=== PATIENT | male | born 1990 | race American Indian/Alaskan Native ===

== ENCOUNTER 2020-12-03 15:17 | Inpatient (IN) | payer OTHER ==
[2020-12-03 17:24] LABS: Basophils % (Auto) 0.3 % (0.0-1.8); Eosinophils % (Auto) 0.3 % (0.0-4.3); Hematocrit 46.7 % (35.5-45.6); Hemoglobin 15.1 gm/dl (11.8-15.2); Lymphocytes # (Auto) 1.7 K/mm3 (1.2-5.4); Lymphocytes % (Auto) 19.3 % (13.4-35.0); Mean Corpuscular HGB Conc 32 % (32-34); Mean Corpuscular Volume 92 fl (84-94); Monocytes # (Auto) 0.6 K/mm3 (0.0-0.8); Monocytes % (Auto) 6.6 % (0.0-7.3); Platelet Count 176 K/mm3 (140-440); Red Blood Count 5.06 M/mm3 (3.65-5.03); Red Cell Distribution Width 14.6 % (13.2-15.2)
[2020-12-03 17:26] LABS: Bilirubin,Urine NEG (Negative); Blood,Urine NEG (Negative); Color,Urine Colorless (Yellow); Mucus,Urine FEW /HPF; Protein,Urine <15 mg/dL mg/dL (Negative); Urobilinogen,Urine < 2.0 mg/dL (<2.0); WBC,Urine < 1.0 /HPF (0.0-6.0)
[2020-12-03 17:39] LABS: Alanine Aminotransferase 43 units/L (7-56); Albumin 4.2 g/dL (3.9-5); BUN/Creatinine Ratio 10; Blood Urea Nitrogen 8 mg/dL (9-20); Calcium 10.1 mg/dL (8.4-10.2); Hemolysis Index 6
--- NOTE | 2020-12-03 18:16 | Event Note ---
ED Screening Note Date of service: 12/03/20 Time: 18:14 ED Screening Note: Patient complains of body aches, weakness, nausea, urinary frequency x4 days No past medical history per patient Glucose noted to be 882 patient denies history of diabetes Heart rate noted to be 124 with a temp of 99.6 Charge nurse notified of likely DKA 1815 This initial assessment/diagnostic orders/clinical plan/treatment(s) is/are subject to change based on patients health status, clinical progression and re-assessment by fellow clinical providers in the ED. Further treatment and workup at subsequent clinical providers discretion. Patient/guardian urged not to elope from the ED as their condition may be serious if not clinically assessed and managed. Initial orders include: Labs
[2020-12-03] MEDS ORDERED: SODIUM CHLORIDE 0.9% 1000 ML 1,000 ML IV ONE ×2 (21:00→22:07)
--- NOTE | 2020-12-03 21:04 | Emergency Department Report ---
HPI - General Chief Complaint: Abdominal Pain Time Seen by Provider: 12/03/20 20:45 - HPI HPI: This is a 30-year-old -[place] male who presents to the emergency department with a complaint of a 4-day history of lightheadedness, intermittent abdominal pain, nausea without vomiting, body aches, and a 1 day history of some right-sided chest discomfort. Patient says that he has had a decreased appetite and that the abdominal pains increased when he eats or drinks anything. He denies any fever, diarrhea, constipation, dysuria, lower extremity swelling. No recent travel or sick contacts at home. Patient denies any past medical history. He had some blood work ordered and drawn through triage that came back showing a blood sugar of 882. No previous history of diabetes. After discussing this with him he does admit to some polyuria and polydipsia. ED Past Medical Hx - Past Medical History Previous Medical History?: No - Surgical History Past Surgical History?: No - Social History Smoking Status: Never Smoker Substance Use Type: Alcohol ED Review of Systems ROS: Stated complaint: CHEST PAIN, NOT EATING, ABD PAIN, BODY PAIN Other details as noted in HPI Comment: All other systems reviewed and negative Constitutional: weakness. denies: fever Eyes: denies: eye pain, vision change Respiratory: denies: cough, shortness of breath Cardiovascular: chest pain. denies: palpitations Endocrine: increased thirst, increased urine Gastrointestinal: abdominal pain, nausea. denies: vomiting, diarrhea, constipation Genitourinary: frequency. denies: dysuria Musculoskeletal: myalgia. denies: joint swelling Skin: denies: rash, lesions Neurological: denies: headache, numbness, paresthesias Physical Exam - Physical Exam Vital Signs: Vital Signs 12/03/20 16:01 Temperature 99.6 F Pulse Rate 124 H Respiratory 22 Rate Blood Pressure 158/94 O2 Sat by Pulse 96 Oximetry Physical Exam: GENERAL: The patient is well-developed well-nourished. HENT: Normocephalic. Atraumatic. Patient has moist mucous membranes. EYES: Extraocular motions are intact. NECK: Supple. Trachea is midline. CHEST/LUNGS: Clear to auscultation. There is no respiratory distress noted. HEART/CARDIOVASCULAR: Regular. There is mild to moderate tachycardia. There is no murmur. ABDOMEN: Abdomen is soft. Mild generalized abdominal tenderness to palpation. No guarding. Patient has normal bowel sounds. Obese habitus. SKIN: Skin is warm and dry. NEURO: The patient is awake, alert, and oriented. The patient is cooperative. The patient has no focal neurologic deficits. Normal speech. MUSCULOSKELETAL: There is no tenderness or deformity. There is no limitation range of motion. ED Course Vital Signs 12/03/20 16:01 Temperature 99.6 F Pulse Rate 124 H Respiratory 22 Rate Blood Pressure 158/94 O2 Sat by Pulse 96 Oximetry - Consultations Consultation #1: 12/03/20 22:09 I spoke to the commercial collections specialist on-call, Dr. Navas, who will consult on the patient. ED Medical Decision Making - Lab Data Result diagrams: 12/03/20 16:34 12/03/20 21:29 Lab Results 12/03/20 12/03/20 12/03/20 Range/Units 16:34 16:34 16:34 WBC 8.6 (4.5-11.0) K/mm3 RBC 5.06 H (3.65-5.03) M/mm3 Hgb 15.1 (11.8-15.2) gm/dl Hct 46.7 H (35.5-45.6) % MCV 92 (84-94) fl MCH 30 (28-32) pg MCHC 32 (32-34) % RDW 14.6 (13.2-15.2) % Plt Count 176 (140-440) K/mm3 Lymph % (Auto) 19.3 (13.4-35.0) % [place] % (Auto) 6.6 (0.0-7.3) % Eos % (Auto) 0.3 (0.0-4.3) % Baso % (Auto) 0.3 (0.0-1.8) % Lymph # (Auto) 1.7 (1.2-5.4) K/mm3 [place] # (Auto) 0.6 (0.0-0.8) K/mm3 Eos # (Auto) 0.0 (0.0-0.4) K/mm3 Baso # (Auto) 0.0 (0.0-0.1) K/mm3 Seg Neutrophils % 73.5 H (40.0-70.0) % Seg Neutrophils # 6.3 (1.8-7.7) K/mm3 VBG pH (7.320-7.420) Sodium 129 L (137-145) mmol/L Potassium 5.0 (3.6-5.0) mmol/L Chloride 93.2 L (98-107) mmol/L Carbon Dioxide 21 L (22-30) mmol/L Anion Gap 20 mmol/L BUN 8 L (9-20) mg/dL Creatinine 0.8 (0.8-1.3) mg/dL Estimated GFR > 60 ml/min BUN/Creatinine Ratio 10 % Glucose 882 H* (75-100) mg/dL POC Glucose (70-105) mg/dL Calcium 10.1 (8.4-10.2) mg/dL Phosphorus (2.5-4.5) mg/dL Magnesium (1.7-2.3) mg/dL Total Bilirubin 0.70 (0.1-1.2) mg/dL AST 19 (5-40) units/L ALT 43 (7-56) units/L Alkaline Phosphatase 138 H (35-129) units/L Troponin T < 0.010 (0.00-0.029) ng/mL Total Protein 7.4 (6.3-8.2) g/dL Albumin 4.2 (3.9-5) g/dL Albumin/Globulin Ratio 1.3 % Lipase 24 (13-60) units/L Urine Color (Yellow) Urine Turbidity (Clear) Urine pH (5.0-7.0) Ur Specific [place] (1.003-1.030) Urine Protein (Negative) mg/dL Urine Glucose (UA) (Negative) mg/dL Urine Ketones (Negative) mg/dL Urine Blood (Negative) Urine Nitrite (Negative) Urine Bilirubin (Negative) Urine Urobilinogen (<2.0) mg/dL Ur Leukocyte Esterase (Negative) Urine WBC (Auto) (0.0-6.0) /HPF Urine RBC (Auto) (0.0-6.0) /HPF U Epithel Cells (Auto) (0-13.0) /HPF Urine Mucus /HPF 12/03/20 12/03/20 12/03/20 Range/Units 18:13 20:51 21:29 WBC (4.5-11.0) K/mm3 RBC (3.65-5.03) M/mm3 Hgb (11.8-15.2) gm/dl Hct (35.5-45.6) % MCV (84-94) fl MCH (28-32) pg MCHC (32-34) % RDW (13.2-15.2) % Plt Count (140-440) K/mm3 Lymph % (Auto) (13.4-35.0) % [place] % (Auto) (0.0-7.3) % Eos % (Auto) (0.0-4.3) % Baso % (Auto) (0.0-1.8) % Lymph # (Auto) (1.2-5.4) K/mm3 [place] # (Auto) (0.0-0.8) K/mm3 Eos # (Auto) (0.0-0.4) K/mm3 Baso # (Auto) (0.0-0.1) K/mm3 Seg Neutrophils % (40.0-70.0) % Seg Neutrophils # (1.8-7.7) K/mm3 VBG pH 7.322 (7.320-7.420) Sodium (137-145) mmol/L Potassium (3.6-5.0) mmol/L Chloride (98-107) mmol/L Carbon Dioxide (22-30) mmol/L Anion Gap mmol/L BUN (9-20) mg/dL Creatinine (0.8-1.3) mg/dL Estimated GFR ml/min BUN/Creatinine Ratio % Glucose (75-100) mg/dL POC Glucose > 600 H (70-105) mg/dL Calcium (8.4-10.2) mg/dL Phosphorus (2.5-4.5) mg/dL Magnesium (1.7-2.3) mg/dL Total Bilirubin (0.1-1.2) mg/dL AST (5-40) units/L ALT (7-56) units/L Alkaline Phosphatase (35-129) units/L Troponin T < 0.010 (0.00-0.029) ng/mL Total Protein (6.3-8.2) g/dL Albumin (3.9-5) g/dL Albumin/Globulin Ratio % Lipase (13-60) units/L Urine Color (Yellow) Urine Turbidity (Clear) Urine pH (5.0-7.0) Ur Specific [place] (1.003-1.030) Urine Protein (Negative) mg/dL Urine Glucose (UA) (Negative) mg/dL Urine Ketones (Negative) mg/dL Urine Blood (Negative) Urine Nitrite (Negative) Urine Bilirubin (Negative) Urine Urobilinogen (<2.0) mg/dL Ur Leukocyte Esterase (Negative) Urine WBC (Auto) (0.0-6.0) /HPF Urine RBC (Auto) (0.0-6.0) /HPF U Epithel Cells (Auto) (0-13.0) /HPF Urine Mucus /HPF 12/03/20 12/03/20 12/03/20 Range/Units 21:29 21:29 Unknown WBC (4.5-11.0) K/mm3 RBC (3.65-5.03) M/mm3 Hgb (11.8-15.2) gm/dl Hct (35.5-45.6) % MCV (84-94) fl MCH (28-32) pg MCHC (32-34) % RDW (13.2-15.2) % Plt Count (140-440) K/mm3 Lymph % (Auto) (13.4-35.0) % [place] % (Auto) (0.0-7.3) % Eos % (Auto) (0.0-4.3) % Baso % (Auto) (0.0-1.8) % Lymph # (Auto) (1.2-5.4) K/mm3 [place] # (Auto) (0.0-0.8) K/mm3 Eos # (Auto) (0.0-0.4) K/mm3 Baso # (Auto) (0.0-0.1) K/mm3 Seg Neutrophils % (40.0-70.0) % Seg Neutrophils # (1.8-7.7) K/mm3 VBG pH (7.320-7.420) Sodium 133 L (137-145) mmol/L Potassium 5.5 H (3.6-5.0) mmol/L Chloride 93.1 L (98-107) mmol/L Carbon Dioxide 23 (22-30) mmol/L Anion Gap 22 mmol/L BUN 7 L (9-20) mg/dL Creatinine 0.8 (0.8-1.3) mg/dL Estimated GFR > 60 ml/min BUN/Creatinine Ratio 9 % Glucose 703 H* (75-100) mg/dL POC Glucose (70-105) mg/dL Calcium 9.7 (8.4-10.2) mg/dL Phosphorus 5.30 H (2.5-4.5) mg/dL Magnesium 2.50 H (1.7-2.3) mg/dL Total Bilirubin (0.1-1.2) mg/dL AST (5-40) units/L ALT (7-56) units/L Alkaline Phosphatase (35-129) units/L Troponin T (0.00-0.029) ng/mL Total Protein (6.3-8.2) g/dL Albumin (3.9-5) g/dL Albumin/Globulin Ratio % Lipase (13-60) units/L Urine Color Colorless (Yellow) Urine Turbidity Clear (Clear) Urine pH 7.0 (5.0-7.0) Ur Specific [place] 1.029 (1.003-1.030) Urine Protein <15 mg/dl (Negative) mg/dL Urine Glucose (UA) >=500 (Negative) mg/dL Urine Ketones Tr (Negative) mg/dL Urine Blood Neg (Negative) Urine Nitrite Neg (Negative) Urine Bilirubin Neg (Negative) Urine Urobilinogen < 2.0 (<2.0) mg/dL Ur Leukocyte Esterase Neg (Negative) Urine WBC (Auto) < 1.0 (0.0-6.0) /HPF Urine RBC (Auto) 2.0 (0.0-6.0) /HPF U Epithel Cells (Auto) 1.0 (0-13.0) /HPF Urine Mucus Few /HPF - Radiology Data Radiology results: image reviewed interpreted by me: Chest x-ray does not show any acute process. There are no pleural effusions, obvious pneumonia and there is no pneumothorax. Abdominal x-ray shows nonspecific nonobstructive bowel gas. No free air. - Medical Decision Making Patient presents with some abdominal discomfort, lightheadedness, polyuria and polydipsia. He has new onset diabetes with a blood sugar of about 880. The patient appears to have some early DKA versus HHNK. There is a slight elevation in the anion gap, the patient is producing trace ketones, and the venous pH is at the acidic end of normal. The patient has been given IV fluid resuscitation and will be placed on an insulin drip. [employer] Superintendent has been contacted and consulted. Patient was accepted for admission by the hospitalist, Dr. Almaraz. Critical Care Time: Yes Critical care time in (mins) excluding proc time.: 35 Critical care attestation.: If time is entered above; I have spent that time in minutes in the direct care of this critically ill patient, excluding procedure time. Critical care time spent on this patient in doing his initial evaluation, multiple reevaluations, ordering interpretation of labs and imaging, initiation of IV fluid and insulin drip, discussion with the commercial collections specialist and hospitalist services. Critical Care Time: 35 minutes ED Disposition Clinical Impression: Diabetes mellitus, new onset DKA (diabetic ketoacidosis) Qualifiers: Diabetes mellitus type: type 1 Diabetes mellitus complication detail: without coma Qualified Code(s): E10.10 - Type 1 diabetes mellitus with ketoacidosis without coma Hypertension Qualifiers: Hypertension type: primary hypertension Qualified Code(s): I10 - Essential (p rimary) hypertension Disposition: OP ADMIT IP TO THIS HOSP Is pt being admited?: Yes Condition: Serious Instructions: Diabetic Ketoacidosis (ED), Diabetes Mellitus Type 2 in Adults (ED), Hypertension (ED) Referrals: PRIMARY CARE, [Primary Care Provider] - 3-5 Days Time of Disposition: 22:06
--- NOTE | 2020-12-03 21:34 | XRay Report ---
ABDOMEN 2 VIEW WITH PA CHEST INDICATION / CLINICAL INFORMATION: Abd pain, CP. COMPARISON: None available. FINDINGS: PA view of the chest is unremarkable. Both lungs are well-expanded and clear. Cardiac silhouette and pulmonary vascularity are normal. The erect views of the abdomen are limited due to body habitus. However, the bowel gas pattern is wel l-visualized on the supine view and is normal. No abnormally dilated loops of bowel are present. No f ree air is identified on the erect PA view of the chest. IMPRESSION: 1. No acute pulmonary disease. 2. Bowel gas pattern is normal. Signer Name: Izzy Gomez MD Signed: 12/03/2020 9:30 PM Workstation Name: [id number]
[2020-12-03] MEDS ORDERED: INSULIN REGULAR, HUMAN 100 UNITS in SODIUM CHLORIDE 0.9% 99 ML IV SCH ×2 (22:00→23:00)
[2020-12-03] MEDS ORDERED: DEXTROSE 50% IN WATER (25GM) 50 ML SYRINGE IV PRN (22:05)
[2020-12-03] MEDS ORDERED: oxyCODONE /ACETAMINOPHEN 5-325MG TAB PO PRN (22:05)
[2020-12-03] MEDS ORDERED: ONDANSETRON 4 MG/2 ML INJ IV PRN (22:05)
[2020-12-03] MEDS ORDERED: ACETAMINOPHEN 325 MG TAB PO PRN (22:05)
[2020-12-03] MEDS ORDERED: HYDROmorphone 1 MG/1 ML INJ IV PRN (22:05)
--- NOTE | 2020-12-03 22:14 | History and Physical Report ---
History of Present Illness Date of examination: 12/03/20 Date of admission: 12/03/20 Chief complaint: Hyperglycemia Abdominal pain History of present illness: 30-year-old -[place] male with no significant past medical history was brought to the emergency room because of a 4-day history of lightheadedness, intermittent abdominal pain, nausea without vomiting, body aches, and a 1 day history of some right-sided chest discomfort. Patient says that he has had a decreased appetite and that the abdominal pains increased when he eats or drinks anything. He denies any fever, diarrhea, constipation, dysuria, lower extremity swelling. No recent travel or sick contacts at home. Patient denies any past medical history. He had some blood work ordered and drawn through triage that came back showing a blood sugar of 882. No previous history of diabetes. After discussing this with him he does admit to some polyuria and polydipsia. In the emergency room patient is found to have DKA. Patient blood glucose 882. Anion gap 20, bicarb 21 potassium 5.0 and sodium 129. Medications and Allergies Allergies Allergy/AdvReac Type Severity Reaction Status Date / Time No Known Allergies Allergy Verified 12/03/20 21:02 Active Meds: Active Medications Acetaminophen (Acetaminophen 325 Mg Tab) 650 mg PO Q4H PRN PRN Reason: Pain MILD(1-3)/Fever >100.5/CARRILLO Dextrose (Dextrose 50% In Water (25gm) 50 Ml Syringe) 0 ml IV Q30MIN PRN; Protocol PRN Reason: Hypoglycemia Famotidine (Famotidine 20 Mg/2 Ml Inj) 20 mg IV BID YESSY Heparin Sodium (Porcine) (Heparin 5,000 Unit/1 Ml Vial) 5,000 unit SUB-Q Q8HR YESSY Hydromorphone HCl (Hydromorphone 1 Mg/1 Ml Inj) 0.5 mg IV Q3H PRN PRN Reason: Pain , Severe (7-10) Insulin Human Regular 100 (units/ Sodium Chloride) 100 mls @ 1 mls/hr IV TITR YESSY; Protocol Sodium Chloride (Nacl 0.9% 1000 Ml) 1,000 mls @ 999 mls/hr IV BOLUS ONE Stop: 12/03/20 23:07 Insulin Human Regular 100 (units/ Sodium Chloride) 100 mls @ 1 mls/hr IV TITR YESSY; Protocol Sodium Chloride (Nacl 0.45% 1000 Ml) 1,000 mls @ 150 mls/hr IV DIRECT YESSY Ondansetron HCl (Ondansetron 4 Mg/2 Ml Inj) 4 mg IV Q8H PRN PRN Reason: Nausea And Vomiting Oxycodone/Acetaminophen (Oxycodone /Acetaminophen 5-325mg Tab) 1 tab PO Q6H PRN PRN Reason: Pain, Moderate (4-6) Sodium Chloride (Sodium Chloride 0.9% 10 Ml Flush Syringe) 10 ml IV BID YESSY Sodium Chloride (Sodium Chloride 0.9% 10 Ml Flush Syringe) 10 ml IV PRN PRN PRN Reason: LINE FLUSH Review of Systems Constitutional: weakness, other (Myalgia) Cardiovascular: chest pain Gastrointestinal: abdominal pain, nausea Exam - Constitutional Vitals: Temp Pulse Resp BP Pulse Ox 99.6 F 124 H 22 158/94 96 12/03/20 16:01 12/03/20 16:01 12/03/20 16:01 12/03/20 16:01 12/03/20 16:01 General appearance: Present: no acute distress, well-nourished - EENT Eyes: Present: PERRL ENT: hearing intact, clear oral mucosa - Neck Neck: Present: supple, normal ROM - Respiratory Respiratory effort: normal Respiratory: bilateral: CTA - Cardiovascular Heart Sounds: Present: S1 & S2. Absent: rub, click - Extremities Extremities: pulses symmetrical, No edema Peripheral Pulses: within normal limits - Abdominal General gastrointestinal: Present: soft, non-tender, non-distended, normal bowel sounds Male genitourinary: Present: normal - Integumentary Integumentary: Present: clear, warm, dry - Musculoskeletal Musculoskeletal: gait normal, strength equal bilaterally - Psychiatric Psychiatric: appropriate mood/affect, intact judgment & insight - Neurologic Neurologic: CNII-XII intact, moves all extremities HEART Score - HEART Score Troponin: Troponin T < 0.010 ng/mL (0.00-0.029) 12/03/20 16:34 Results - Labs CBC & Chem 7: 12/03/20 16:34 12/03/20 16:34 Labs: Laboratory Last Values WBC 8.6 K/mm3 (4.5-11.0) 12/03/20 16:34 RBC 5.06 M/mm3 (3.65-5.03) H 12/03/20 16:34 Hgb 15.1 gm/dl (11.8-15.2) 12/03/20 16:34 Hct 46.7 % (35.5-45.6) H 12/03/20 16:34 MCV 92 fl (84-94) 12/03/20 16:34 MCH 30 pg (28-32) 12/03/20 16:34 MCHC 32 % (32-34) 12/03/20 16:34 RDW 14.6 % (13.2-15.2) 12/03/20 16:34 Plt Count 176 K/mm3 (140-440) 12/03/20 16:34 Lymph % (Auto) 19.3 % (13.4-35.0) 12/03/20 16:34 [place] % (Auto) 6.6 % (0.0-7.3) 12/03/20 16:34 Eos % (Auto) 0.3 % (0.0-4.3) 12/03/20 16:34 Baso % (Auto) 0.3 % (0.0-1.8) 12/03/20 16:34 Lymph # (Auto) 1.7 K/mm3 (1.2-5.4) 12/03/20 16:34 [place] # (Auto) 0.6 K/mm3 (0.0-0.8) 12/03/20 16:34 Eos # (Auto) 0.0 K/mm3 (0.0-0.4) 12/03/20 16:34 Baso # (Auto) 0.0 K/mm3 (0.0-0.1) 12/03/20 16:34 Seg Neutrophils % 73.5 % (40.0-70.0) H 12/03/20 16:34 Seg Neutrophils # 6.3 K/mm3 (1.8-7.7) 12/03/20 16:34 VBG pH 7.322 (7.320-7.420) 12/03/20 18:13 Sodium 129 mmol/L (137-145) L 12/03/20 16:34 Potassium 5.0 mmol/L (3.6-5.0) 12/03/20 16:34 Chloride 93.2 mmol/L (98-107) L 12/03/20 16:34 Carbon Dioxide 21 mmol/L (22-30) L 12/03/20 16:34 Anion Gap 20 mmol/L 12/03/20 16:34 BUN 8 mg/dL (9-20) L 12/03/20 16:34 Creatinine 0.8 mg/dL (0.8-1.3) 12/03/20 16:34 Estimated GFR > 60 ml/min 12/03/20 16:34 BUN/Creatinine Ratio 10 % 12/03/20 16:34 Glucose 882 mg/dL (75-100) H* 12/03/20 16:34 POC Glucose > 600 mg/dL (70-105) H 12/03/20 20:51 Calcium 10.1 mg/dL (8.4-10.2) 12/03/20 16:34 Total Bilirubin 0.70 mg/dL (0.1-1.2) 12/03/20 16:34 AST 19 units/L (5-40) 12/03/20 16:34 ALT 43 units/L (7-56) 12/03/20 16:34 Alkaline Phosphatase 138 units/L (35-129) H 12/03/20 16:34 Troponin T < 0.010 ng/mL (0.00-0.029) 12/03/20 16:34 Total Protein 7.4 g/dL (6.3-8.2) 12/03/20 16:34 Albumin 4.2 g/dL (3.9-5) 12/03/20 16:34 Albumin/Globulin Ratio 1.3 % 12/03/20 16:34 Lipase 24 units/L (13-60) 12/03/20 16:34 Urine Color Colorless (Yellow) 12/03/20 Unknown Urine Turbidity Clear (Clear) 12/03/20 Unknown Urine pH 7.0 (5.0-7.0) 12/03/20 Unknown Ur Specific [place] 1.029 (1.003-1.030) 12/03/20 Unknown Urine Protein <15 mg/dl mg/dL (Negative) 12/03/20 Unknown Urine Glucose (UA) >=500 mg/dL (Negative) 12/03/20 Unknown Urine Ketones Tr mg/dL (Negative) 12/03/20 Unknown Urine Blood Neg (Negative) 12/03/20 Unknown Urine Nitrite Neg (Negative) 12/03/20 Unknown Urine Bilirubin Neg (Negative) 12/03/20 Unknown Urine Urobilinogen < 2.0 mg/dL (<2.0) 12/03/20 Unknown Ur Leukocyte Esterase Neg (Negative) 12/03/20 Unknown Urine WBC (Auto) < 1.0 /HPF (0.0-6.0) 12/03/20 Unknown Urine RBC (Auto) 2.0 /HPF (0.0-6.0) 12/03/20 Unknown U Epithel Cells (Auto) 1.0 /HPF (0-13.0) 12/03/20 Unknown Urine Mucus Few /HPF 12/03/20 Unknown - Imaging and Cardiology Chest x-ray: report reviewed Abdominal x-ray: report reviewed Assessment and Plan VTE prophylaxis?: Chemical Plan of care discussed with patient/family: Yes - Patient Problems (1) DKA (diabetic ketoacidosis) Current Visit: Yes Status: Acute Plan to address problem: Admit the patient to the critical care unit. Put the patient on DKA pathway. IV fluid half-normal saline at the rate of 150 cc/h. Insulin drip as per protocol. We do the serial BMP. Will consult and notified critical care Dr. Navas (2) Diabetes mellitus, new onset Current Visit: Yes Status: Acute Plan to address problem: We will put the patient on insulin drip as per protocol. Will consult diabetic education (3) Hypertension Current Visit: Yes Status: Acute Plan to address problem: Hydralazine 10 mg IV every 6 hours as needed. We will monitor the blood pressure closely. (4) DVT prophylaxis Current Visit: Yes Status: Acute Plan to address problem: Heparin 5000 units subcu every 8 hours for DVT prophylaxis. Pepcid 20 mg IV every 12 hours for for GI prophylaxis. Patient is a full code
[2020-12-03 22:28] LABS: BUN/Creatinine Ratio 9; Blood Urea Nitrogen 7 mg/dL (9-20); Calcium 9.7 mg/dL (8.4-10.2); Hemolysis Index 178
[2020-12-03 23:18] LABS: BUN/Creatinine Ratio 8; Blood Urea Nitrogen 7 mg/dL (9-20); Calcium 9.8 mg/dL (8.4-10.2); Hemolysis Index 2
[2020-12-04 01:35] LABS: BUN/Creatinine Ratio 8; Blood Urea Nitrogen 6 mg/dL (9-20); Calcium 8.9 mg/dL (8.4-10.2); Hemolysis Index 6
[2020-12-04] MEDS: SODIUM CHLORIDE 0.45% 1000 ML 1,000 ML IV SCH ×3 (03:33→23:54)
[2020-12-04 03:49] LABS: Blood Urea Nitrogen 5 mg/dL (9-20); Calcium 9.7 mg/dL (8.4-10.2); Hemolysis Index 1
[2020-12-04 03:51] LABS: BUN/Creatinine Ratio 7
[2020-12-04 06:42] LABS: Blood Urea Nitrogen 6 mg/dL (9-20); Calcium 9.4 mg/dL (8.4-10.2); Hemolysis Index 14
[2020-12-04 06:59] LABS: BUN/Creatinine Ratio 10
[2020-12-04] MEDS ORDERED: DEXTROSE 50% IN WATER (25GM) 50 ML SYRINGE IV PRN (07:27)
[2020-12-04] MEDS ORDERED: hydrALAZINE 20 MG/1 ML INJ IV PRN (07:29)
[2020-12-04] MEDS: HEPARIN 5,000 UNIT/1 ML VIAL SUB-Q SCH ×3 (09:03→21:35)
[2020-12-04] MEDS: INSULIN LISPRO 100 UNIT/ML SUB-Q SCH ×4 (09:03→22:04)
[2020-12-04 10:26] LABS: Chol/HDL Ratio 3.7 %
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
[2020-12-04] MEDS: amLODIPine 5 MG TAB PO SCH (11:31)
[2020-12-04] MEDS: FAMOTIDINE 20 MG/2 ML INJ IV SCH ×2 (11:31→21:35)
[2020-12-04] MEDS: INSULIN NPH/REGULAR 70/30 INJ SUB-Q SCH ×2 (11:31→16:14)
[2020-12-04 21:31] LABS: Blood Urea Nitrogen 7 mg/dL (9-20); Calcium 8.9 mg/dL (8.4-10.2); Hemolysis Index 16
[2020-12-04 21:33] LABS: BUN/Creatinine Ratio 12
[2020-12-05 05:03] LABS: Hematocrit 36.1 % (35.5-45.6); Hemoglobin 11.8 gm/dl (11.8-15.2); Mean Corpuscular HGB Conc 33 % (32-34); Mean Corpuscular Volume 91 fl (84-94); Platelet Count 144 K/mm3 (140-440); Red Blood Count 3.99 M/mm3 (3.65-5.03); Red Cell Distribution Width 14.6 % (13.2-15.2)
[2020-12-05 05:12] LABS: Blood Urea Nitrogen 7 mg/dL (9-20); Calcium 8.1 mg/dL (8.4-10.2); Hemolysis Index 5
[2020-12-05 05:48] LABS: BUN/Creatinine Ratio 12
[2020-12-05] MEDS: HEPARIN 5,000 UNIT/1 ML VIAL SUB-Q SCH (05:57)
[2020-12-05] MEDS: SODIUM CHLORIDE 0.45% 1000 ML 1,000 ML IV SCH (05:59)
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
[2020-12-05] MEDS: INSULIN LISPRO 100 UNIT/ML SUB-Q SCH ×2 (08:51→12:42)
[2020-12-05] MEDS: FAMOTIDINE 20 MG/2 ML INJ IV SCH ×2 (08:53→12:43)
[2020-12-05] MEDS: amLODIPine 5 MG TAB PO SCH ×2 (08:53→12:43)
[2020-12-05] MEDS ORDERED: INSULIN NPH/REGULAR 70/30 INJ SUB-Q SCH (09:00)
--- NOTE | 2020-12-05 10:38 | Electrocardiograph Report ---
[facility] Test Date: 2020-12-03 Test Time: 23:34:43 Pat Name: ASH ROBERSON Department: Room: B317 1 Gender: M Finance Assistant: CONCHIS : 1990 Requested By: DENISE SANDERSON Order Number: [id number] Reading MD: Valentino St Measurements Intervals [place] Rate: 80 P: 47 MS: 109 QRS: 47 QRSD: 99 T: 12 QT: 363 QTc: 420 Interpretive Statements Sinus rhythm No previous ECG available for comparison Electronically Signed On 12-05-2020 10:38:[address]
[2020-12-05 11:59] VITALS: BP 130/92
== END 2020-12-05 14:19 | disposition home or self-care (01) | DRG 638 ==
LOC: ED 15:17 → CC1 12-04 00:48 → IMCU 12-04 08:56 → 3B-SURG 12-04 15:00
PROVIDERS: ADMIT Hospitalist; ATTEND Internal Medicine
DX: E11.10 Type 2 diabetes mellitus with ketoacidosis without coma (principal); Z68.43 Body mass index [BMI] 50.0-59.9, adult; E87.1 Hypo-osmolality and hyponatremia; I10 Essential (primary) hypertension; E66.01 Morbid (severe) obesity due to excess calories; E87.8 Other disorders of electrolyte and fluid balance, not elsewhere classified; E83.39 Other disorders of phosphorus metabolism; E83.41 Hypermagnesemia; Z82.5 Family history of asthma and other chronic lower respiratory diseases
CPT/HCPCS: 36415; 74022; 80048; 80053; 80061; 81001; 82805; 82962; 83036; 83690; 83735; 83930; 84100; 84484; 85025; 85027; 93005; 99291; G0378; A9270-GY; J1644; J1815; J7030